=== PATIENT | male | born 1965 | race Caucasian/White ===

== ENCOUNTER 2017-02-05 10:23 | Emergency (ER) | payer MEDICARE ==
[~2017-02-05] VITALS: Ht 172.7 cm; Wt 73.0 kg
[~2017-02-05 10:23] MED LIST: DIAZ10TA4 PO; DIAZ5TAB PO; DIAZ5TAB4 PO; FLUT9.9S NAS; MEDROL DOSE PAK; METH4TAB2 PO; METH750T2 PO; MONT10TA9 PO; OXYC10TA6 PO; OXYC20TA42 PO; TIZA4CAP2 PO
[2017-02-05 10:24] VITALS: BP 144/88
[2017-02-05] MEDS ORDERED: KETOROLAC 30 MG/1 ML IM ONE (11:00)
[2017-02-05] MEDS ORDERED: DEXAMETHASONE 4 MG TABLET PO ONE (11:00)
[2017-02-05] MEDS ORDERED: DIAZEPAM 5 MG TABLET PO ONE (11:00)
[2017-02-05] MEDS ORDERED: DIAZEPAM 5 MG TABLET ONE (11:04)
[2017-02-05] MEDS ORDERED: KETOROLAC 30 MG/1 ML ONE (11:05)
[2017-02-05] MEDS ORDERED: DEXAMETHASONE 4 MG TABLET ONE (11:05)
[2017-02-05] MEDS ORDERED: HYDR2TAB29 PO (11:12)
== END 2017-02-05 12:14 | disposition home or self-care (01) ==
LOC: ED 12:00
DX: S39.012A Strain of muscle, fascia and tendon of lower back, initial encounter (principal); M54.9 Dorsalgia, unspecified; G89.29 Other chronic pain; M47.896 Other spondylosis, lumbar region; Z88.6 Allergy status to analgesic agent; X58.XXXA Exposure to other specified factors, initial encounter; Y93.89 Activity, other specified; Y92.89 Other specified places as the place of occurrence of the external cause; Y99.8 Other external cause status
CPT/HCPCS: 72110; 96372; 99284; J1885

== ENCOUNTER → 2017-06-06 | Outpatient (CLI) | payer MEDICARE ==
[~2017-06-06] MED LIST changes: +HYDR2TAB29 PO
== END | disposition home or self-care (01) ==
LOC: CFH 08:15
PROVIDERS: ATTEND Internal Medicine
DX: M19.012 Primary osteoarthritis, left shoulder (principal); M48.02 Spinal stenosis, cervical region; M50.30 Other cervical disc degeneration, unspecified cervical region
CPT/HCPCS: 72125